=== PATIENT | female | born 1965 | race Caucasian/White ===

== ENCOUNTER 2018-04-11 15:15 | Emergency (ER) | payer OTHER ==
[2018-04-11 15:59] VITALS: BP 143/97; PULSE 69; TEMP 98.1; BMI 36.1
--- NOTE | 2018-04-11 16:11 | PDOC ---
History of Present Illness - General Chief Complaint: Pain Stated Complaint: RUQ PAIN Time Seen by Provider: 04/11/18 15:29 Past History - Past Medical History Allergies/Adverse Reactions: Allergies Allergy/AdvReac Type Severity Reaction Status Date / Time No Known Allergies Allergy Verified 04/11/18 15:43 Home Medications: Ambulatory Orders Levothyroxine [Synthroid] 112 mcg PO DAILY 12/01/12 Alprazolam [Xanax] 0.25 mg PO DAILY PRN 04/11/18 Cyclobenzaprine HCl [Flexeril 10 mg] 10 mg PO BID PRN 04/11/18 Glipizide [Glipizide ER] 10 mg PO DAILY 04/11/18 Pantoprazole Sodium [Protonix -] 40 mg PO DAILY PRN 04/11/18 Phenobarb/Hyoscy/Atropine/Scop [ Tablet] 16.2 mg PO BID #20 tablet 04/11 traZODone HCL [Trazodone HCl] 100 mg PO HS PRN 04/11/18 COPD: No Diabetes: Yes (TYPE II) Psychiatric Problems: Yes (ANXIETY) Thyroid Disease: Yes (HYPOTHYROIDISM) - Surgical History Appendectomy: Yes - Suicide/Smoking/Psychosocial Hx Smoking Status: No Smoking History: Never smoked Number of Cigarettes Smoked Daily: 0 Hx Alcohol Use: No Drug/Substance Use Hx: No Substance Use Type: None *Physical Exam - Vital Signs Last Vital Signs Temp Pulse Resp BP Pulse Ox 98.1 F 69 18 143/97 98 04/11/18 15:28 04/11/18 15:28 04/11/18 15:28 04/11/18 15:28 04/11/18 15:28 ED Treatment Course - LABORATORY CBC & Chemistry Diagram: 04/11/18 16:40 04/11/18 16:40 *DC/Admit/Observation/Transfer Diagnosis at time of Disposition: Abdominal pain Qualifiers: Abdominal location: unspecified location Qualified Code(s): R10.9 - Unspecified abdominal pain - Discharge Dispostion Disposition: HOME Condition at time of disposition: Good Decision to Admit order: No - Prescriptions Prescriptions: Phenobarb/Hyoscy/Atropine/Scop [ Tablet] 16.2 mg PO BID #20 tablet - Referrals Referrals: Dipak Deluna MD [Staff Physician] - Dilan Pacheco MD [Staff Physician] - - Patient Instructions Printed Discharge Instructions: DI for Abdominal Pain-Adult - Post Discharge Activity Forms/Work/School Notes: Back to Work
[2018-04-11 16:28] LABS: HCG,QUALITATIVE URINE Negative; PH,URINE 5.5 (4.5-8); URINE APPEARANCE Clear; URINE BILIRUBIN Negative (NEGATIVE); URINE COLOR Yellow; URINE GLUCOSE (UA) Negative (NEGATIVE); URINE KETONE Negative (NEGATIVE); URINE LEUK ESTERASE TRACE (NEGATIVE); URINE NITRITE Negative (NEGATIVE); URINE PROTEIN Negative (NEGATIVE); URINE UROBILINOGEN 0.2 (0.2-1.0)
[2018-04-11 17:09] LABS: BASO % 0.2 % (0-2.0); EOS % 4.7 % (0-4.5); HEMOGLOBIN 14.2 GM/dl (10.7-15.3); LYMPH % 33.2 % (8-40); MCH 29.3 pg (25.7-33.7); MCHC 33.1 g/dl (32.0-36.0); MEAN CELL VOLUME 88.5 fl (80-96); MEAN PLT VOLUME 9.7 fl (7.5-11.1); MONO % 5.8 % (3.8-10.2); NEUT % 56.1 % (42.8-82.8); PLATELET COUNT 236 K/MM3 (134-434); RBC 4.86 M/mm3 (3.60-5.2); RDW 12.3 % (11.6-15.6); WHITE BLOOD COUNT 7.3 K/mm3 (4.0-10.8)
[2018-04-11 17:13] LABS: EPI CELLS FEW /HPF
[2018-04-11 17:27] LABS: ALBUMIN 4.4 g/dl (3.5-5.0); ALK PHOS 60 U/L (32-92); AMYLASE 56 U/L (25-125); ANION GAP 8 MMOL/L (8-16); BILIRUBIN,TOTAL 0.7 mg/dl (0.2-1.0); BLOOD UREA NITROGEN 12 mg/dl (7-18); CALCIUM 9.4 mg/dl (8.4-10.2); CHLORIDE 106 mmol/L (98-107); CO2 25 mmol/L (22-28); CREATININE 0.8 mg/dl (0.6-1.3); GLUCOSE,RANDOM 99 mg/dl (74-106); SGOT/AST 21 U/L (10-42); SGPT/ALT 25 U/L (10-40); SODIUM 139 mmol/L (136-145); TOT PROT 6.9 g/dl (6.4-8.3)
[2018-04-11] MEDS ORDERED: KETOROLAC TROMETHAMINE 30 MG/1 ML VIAL IVPUSH ONE (17:51)
[2018-04-11] MEDS ORDERED: FAMOTIDINE 20 MG/50 ML IVPB 20 MG/50 ML MG IVPB ONE ×2 (17:51→18:14)
[2018-04-11] MEDS ORDERED: KETOROLAC TROMETHAMINE 30 MG/1 ML VIAL ONE (18:14)
[2018-04-11 18:52] LABS: LIPASE 160 U/L (73-393)
== END 2018-04-11 18:58 | disposition home or self-care (01) ==
LOC: FER 15:15
PROC: 3E033GC Introduction of Other Therapeutic Substance into Peripheral Vein, Percutaneous Approach (ICD-10-PCS; principal; 2018-04-11)
PROC: 3E0333Z Introduction of Anti-inflammatory into Peripheral Vein, Percutaneous Approach (ICD-10-PCS; 2018-04-11)
DX: R10.9 Unspecified abdominal pain (principal); E03.9 Hypothyroidism, unspecified; F41.9 Anxiety disorder, unspecified; E11.9 Type 2 diabetes mellitus without complications
CPT/HCPCS: 36415; 76700-TC; 80053; 81003; 81015; 82150; 83690; 84703; 85025; 99283-25

== ENCOUNTER 2019-05-23 14:21 | Emergency (ER) | payer OTHER ==
--- NOTE | 2019-05-23 14:30 | PDOC ---
History of Present Illness - General Chief Complaint: Pain Stated Complaint: RT BREAST LUMP Time Seen by Provider: 05/23/19 14:28 - History of Present Illness Initial Comments: 05/23/19 14:47 53 y/o F with hx of multiple abscesses, diabetes, anxiety and depression , presenting today with swelling under right breast. She has had this swelling under her right breast for about 2 years which began to increase in size for the last few months. The area became painful last week. She placed a warm compress on it yesterday to relieve the pain but that was not helpful. She denies any fevers, nausea, vomiting, itching 05/23/19 14:49 05/23/19 15:18 Past History - Past Medical History Allergies/Adverse Reactions: Allergies Allergy/AdvReac Type Severity Reaction Status Date / Time No Known Allergies Allergy Verified 05/23/19 14:24 Home Medications: Ambulatory Orders Levothyroxine [Synthroid] 112 mcg PO DAILY 12/01/12 Alprazolam [Xanax] 0.25 mg PO DAILY PRN 04/11/18 Cyclobenzaprine HCl [Flexeril 10 mg] 10 mg PO BID PRN 04/11/18 Glipizide [Glipizide ER] 10 mg PO DAILY 04/11/18 Pantoprazole Sodium [Protonix -] 40 mg PO DAILY PRN 04/11/18 traZODone HCL [Trazodone HCl] 100 mg PO HS PRN 04/11/18 Sertraline HCl 50 mg PO DAILY 05/23/19 COPD: No Diabetes: Yes (TYPE II) Psychiatric Problems: Yes (ANXIETY) Thyroid Disease: Yes (HYPOTHYROIDISM) - Surgical History Appendectomy: Yes - Psycho Social/Smoking Cessation Hx Smoking Status: No Smoking History: Never smoked Number of Cigarettes Smoked Daily: 0 Hx Alcohol Use: No Drug/Substance Use Hx: No Substance Use Type: None Review of Systems - Review of Systems Constitutional: No: Chills, Fever HEENTM: No: Eye Pain, Blurred Vision Respiratory: No: Cough, Shortness of Breath Cardiac (ROS): No: Chest Pain, Lightheadedness ABD/GI: No: Abdominal Distended, Nausea, Vomiting : No: Burning, Dysuria Musculoskeletal: No: Back Pain, Muscle Pain Integumentary: No: Bruising, Rash Neurological: No: Headache, Numbness Psychiatric: Yes: Anxiety Hematologic/Lymphatic: No: Blood Clots, Easy Bleeding *Physical Exam - Physical Exam Comments: 05/23/19 15:06 PE: GENERAL: Awake, alert, and fully oriented, in no acute distress HEAD: No signs of trauma, normocephalic, atraumatic EYES: EOMI, sclera anicteric, conjunctiva clear ENT: Auricles normal inspection, hearing grossly normal, nares patent, NECK: Normal ROM, supple, or masses LUNGS: No distress, speaks full sentences, clear to auscultation bilaterally HEART: Regular rate and rhythm, normal S1 and S2, no murmurs, rubs or gallops, peripheral pulses normal and equal bilaterally. ABDOMEN: Soft, nontender, normoactive bowel sounds. No guarding, no rebound. No masses EXTREMITIES : Normal inspection, Normal range of motion, no edema. No clubbing or cyanosis NEUROLOGICAL: Cranial nerves II through XII grossly intact. Normal speech, normal gait, SKIN: 1.5 cm swelling under the fold of right breast. tender to palpation and firm to touch.No fluctuance. 05/23/19 15:43 05/23/19 18:07 Medical Decision Making - Medical Decision Making 05/23/19 15:43 -Incision and drainage done using 2% lidocaine -cheesy sebaceous material recovered - will give 500mg naproxen PO for pain once anesthesia wears off. -Pt will be discharged with pcp follow up. Discharge - Discharge Information Problems reviewed: Yes Clinical Impression/Diagnosis: Sebaceous cyst Condition: Good Disposition: HOME - Admission No - Follow up/Referral - Patient Discharge Instructions Patient Printed Discharge Instructions: DI for Epidermal Cyst Additional Instructions: You had a sebaceous cyst which was drained in the ER Keep the area covered with a band aid to reduce irritation and discomfort you can clean it with water, soap and clean towel. cover with band aid afterward. antibiotic ointment is not necessary RETURN TO THE ER if you develop fevers or chills swelling or redness around the area red streaking around the site of incision - Post Discharge Activity
[2019-05-23 14:58] VITALS: BP 138/88; PULSE 74; TEMP 98.4; BMI 36.9
[2019-05-23] MEDS ORDERED: LIDOCAINE HCL 2% (50ML VIAL) SQ ONE (15:23)
[2019-05-23] MEDS ORDERED: LIDOCAINE HCL 2% (20ML MULTI-DOSE VIAL) NR ONE (15:23)
[2019-05-23] MEDS ORDERED: NAPROXEN 500 MG TABLET (FP) PO ONE (15:41)
[2019-05-23] MEDS ORDERED: NAPROXEN 500 MG TABLET (FP) ONE (15:45)
--- NOTE | 2019-05-23 15:48 | PDOC ---
Attending Attestation - Resident Resident Name: Herber Hallman - ED Attending Attestation I have performed the following: I have examined & evaluated the patient, The case was reviewed & discussed with the resident, I agree w/resident's findings & plan - HPI HPI: 05/23/19 15:44 Patient with hx of prior skin abscesses and sebaceous cysts. Has had a sebaceous cyst under right breast for many months, now bigger and more uncomfortable. No fever, applied hot compress without it opening. - Physicial Exam PE: 05/23/19 15:45 Under right breast there is an indurated and slightly fluctuant cyst on the anterior wall of the chest just below the breast crease. Approximately nickel sized. No surrounding cellulitis. - Medical Decision Making 05/23/19 15:46 I and D of sebaceous cyst done by me with good result. See procedure note. Procedure Note Procedure: skin prep cholorhexidine x 2 lidocaine 2% local ring block and local anesthetic #11 blade incision with cheesy sebaceous material expressed skin cleansed and dressed with bandaid naprosyn given advised regarding wound care and follow up
== END 2019-05-23 16:14 | disposition home or self-care (01) ==
LOC: FER 14:21
PROC: 0H95XZZ Drainage of Chest Skin, External Approach (ICD-10-PCS; principal; 2019-05-23)
DX: L72.3 Sebaceous cyst (principal); E11.9 Type 2 diabetes mellitus without complications; F41.9 Anxiety disorder, unspecified; E03.9 Hypothyroidism, unspecified
CPT/HCPCS: 99281-25